=== PATIENT | female | born 1945 | race Caucasian/White ===

== ENCOUNTER 2023-08-08 13:14 | Outpatient (OUT) | payer MEDICARE, SELFPAY ==
--- NOTE | 2023-08-08 | XR_ITS ---
The [place] [id number] Patient Name: EVANGELINA MALAVE MRN: [id number] date: 1945 Sex: F Assigned Patient Location: [facility] Current Patient Location: [facility] Accession/Order Number: [id number] Exam Date: 08/08/2023 13:35 Report Date: 08/08/2023 16:14 At the request of: MANJEET PLAZA Procedure: XR foot JIA min 3V PROCEDURE: XR foot JIA min 3V DATE: 08/08/2023 12:35 PM CDT COMPARISONS: None CLINICAL INDICATION: BILAT FOOT PAIN FINDINGS: There is diffuse bone demineralization. There is bilateral pes planus. There is postop changes of the left distal fibula. There is moderate to severe bilateral hallux valgus deformity. There is mild to moderate lateral subluxation of the first proximal phalanges with respect to the distal first metatarsals bilaterally. This is likely associated with the hallux valgus deformity. There is scattered midfoot degenerative changes There is no evidence of fracture of the left foot There is oblique lucency of the proximal and lateral aspect of the fifth metatarsal. This appears to represent fracture. It may be an acute or subacute fracture. Correlation with physical exam and clinical history may be helpful in determining the age of this fracture. XR/XR foot JIA min 3V IMPRESSION: 1. Prominent bone demineralization 2. Prominent bilateral hallux valgus deformity 3. Bilateral pes planus deformity 4. Scattered degenerative changes 5. Fracture of the proximal lateral aspect of the fifth metatarsal, age undetermined. It is assumed to be an acute fracture. Electronically authenticated by: JOSE LOTT Date: 08/08/2023 16:14
== END 2023-08-08 13:15 | disposition home or self-care (01) ==
LOC: RAD 13:19
PROVIDERS: PCP Family Medicine; Visit Provider Physician Assistant
DX: M79.673 Pain in unspecified foot (principal); M20.12 Hallux valgus (acquired), left foot; M20.11 Hallux valgus (acquired), right foot; M21.42 Flat foot [pes planus] (acquired), left foot; M21.41 Flat foot [pes planus] (acquired), right foot; S92.353A Displaced fracture of fifth metatarsal bone, unspecified foot, initial encounter for closed fracture
CPT/HCPCS: 73630

== ENCOUNTER 2023-08-29 11:38 | Outpatient (OUT) | payer MEDICARE, SELFPAY ==
--- NOTE | 2023-08-29 12:09 | XR_ITS ---
The [address] [address] Patient Name: EVANGELINA MALAVE MRN: [id number] date: 1945 Sex: F Assigned Patient Location: [facility] Current Patient Location: Accession/Order Number: [id number] Exam Date: 08/29/2023 12:00 Report Date: 08/30/2023 08:09 At the request of: NON-STAFF PHYSICIAN Procedure: XR lumbar spine min 4V EXAMINATION: XR lumbar spine min 4V HISTORY: Acute Bilateral Low Back Pain With Sciatica M54.40 COMPARISON: No relevant comparison available. FINDINGS: BONES: Levocurvature of the lumbar spine centered at L2-L3. Moderate degenerative spondylosis and facet osteoarthropathy. 3 mm anterolisthesis of L4 on L5. Anterior wedge compression fracture T11 and T12, chronic changes are favored. DISC SPACES: Multilevel disc space narrowing most significant L4-S1 PARASPINOUS: Negative. No paraspinous abnormality is seen. OTHER: Vascular calcifications XR/XR lumbar spine min 4V IMPRESSION: Moderate diffuse degenerative changes Electronically authenticated by: MICHAEL LAWSON Date: 08/30/2023 08:09
[2023-08-29 12:52] LABS: Anion Gap 14.6; BUN Creatinine Ratio 18.1; Calcium 9.2 mg/dL (8.5-10.1); Carbon Dioxide 22.8 mmol/L (21.0-32.0); Chloride 105 mmol/L (98-107); Estimated GFR (African America 36 (>=60); Estimated GFR (Non-African Ame 30 (>=60); Glucose 122 mg/dL (74-106); Potassium 4.4 mmol/L (3.5-5.1); Sodium 138 mmol/L (136-145)
== END 2023-08-29 11:39 | disposition home or self-care (01) ==
LOC: RAD 11:40
PROVIDERS: PCP Family Medicine
DX: M54.40 Lumbago with sciatica, unspecified side (principal); N18.4 Chronic kidney disease, stage 4 (severe); M47.816 Spondylosis without myelopathy or radiculopathy, lumbar region
CPT/HCPCS: 36415; 72110; 80048

== ENCOUNTER 2024-02-24 14:39 | Outpatient (OUT) | payer MEDICARE, SELFPAY ==
--- OUTSIDE RECORDS SUMMARY | 2024-02-24 14:58 | XMS_ITS | CCD ---
Author Organization [facility] Care Team Providers Care Business Excellence Leader Name Role Phone Remi Ward Admitting Unavailable Remi Ward Attending Unavailable Devante Montesinos Primary Care Unavailable Devante Montesinos Unavailable Unavailable Unavailable LATOSHA VARGAS Attending Unavailable LATOSHA VARGAS Consulting Unavailable LATOSHA VARGAS Admitting Unavailable DR DEVANTE MONTESINOS Primary Care Unavailable Isaías Lew Unavailable POOJA DENISE Attending Unavailable DEVANTE MONTESINOS Attending Unavailable ABBY REIS Attending Unavailable ABBY REIS Attending Unavailable DEVANTE MONTESINOS Attending Unavailable Allergies Allergy Classification Reported Allergen(s) Allergy Type Date of Onset Reaction(s) Facility (1 source) Hmg-Coa Reductase Inhibitors (Statins); Translations: [Statins] Allergy to drug (finding) Other [facility] y 250 DO Work Phone: Medications Current Medications Medication Drug Class(es) Dates Sig (Normalized) Sig (Original) allopurinol 100 mg oral tablet (1 source) Xanthine Oxidase Inhibitor take 1 tablet by mouth every twenty-four hours Allopurinol 100 MG 1 Tablet Orally Daily for 90 day(s) Active apixaban 2.5 mg oral tablet (2 sources) Factor Xa Inhibitor Eliquis 2.5 MG Orally twice a day Active Completed/Discontinued Medications Medication Drug Class(es) Dates Sig (Normalized) Sig (Original) amLODIPine 10 mg oral tablet (2 sources) Dihydropyridine Calcium Channel Josiah Start: 10-02-2021 take 1 tablet by mouth once daily amLODIPine Besylate 10 MG Oral Tablet Take 1 tablet daily Quantity: 90 Refills: 3 Ordered: 30-Dec-2021 DO Start : 02-Oct-2021 Active carvedilol 12.5 mg oral tablet (2 sources) alpha-Adrenergic Josiah, beta-Adrenergic Josiah Start: 09-25-2021 take 0.5 tablet by mouth twice daily Carvedilol 12.5 MG Oral Tablet take 1/2 tablet by mouth twice daily Quantity: 180 Refills: 3 Ordered: 26-Dec-2021 DO Start : 25-Sep-2021 Active cloNIDine hydrochloride 0.1 mg oral tablet (2 sources) Central alpha-2 Adrenergic Agonist Start: 03-21-2021 take 1 tablet by mouth three times daily cloNIDine HCl - 0.1 MG Oral Tablet TAKE 1 TABLET 3 TIMES DAILY. Quantity: 0 Refills: 0 Ordered: 26-Dec-2021 DO Start : 21-Mar-2021 Active furosemide 40 mg oral tablet (2 sources) Loop Diuretic Start: 08-14-2020 take 1 tablet by mouth twice daily Furosemide 40 MG Oral Tablet TAKE 1 TABLET TWICE DAILY. Quantity: 180 Refills: 3 Ordered: 13-Apr-2021 DO Start : 14-Aug-2020 Active take 2 tablets by mo uth in the morning, then take 1 tablet by mouth twice daily in the evening Lasix 40 mg 2 Tablets In AM and 1 tab in Pm Orally bid Active Problems Active Problems Problem Classification Problem Date Documented Date Episodic/Chronic Acute cerebrovascular disease (1 source) Cerebrovascular accident; Translations: [Cerebral artery occlusion, unspecified with cerebral infarction] Chronic Cardiac dysrhythmias (1 source) Paroxysmal atrial fibrillation; Translations: [Atrial fibrillation] Chronic Chronic kidney disease (7 sources) Chronic kidney disease stage 3; Translations: [Chronic kidney disease, Stage III (moderate)] Chronic Chronic kidney disease (1 source) Chronic kidney disease; Translations: [Chronic kidney disease, stage III (moderate)] Deficiency and other anemia (1 source) Anemia of renal disease; Translations: [Anemia in chronic kidney disease] Chronic Deficiency and other anemia (1 source) Anemia in chronic kidney disease Chronic Diabetes mellitus with complications (1 source) Type 2 diabetes mellitus; Translations: [Type 2 diabetes mellitus with diabetic chronic kidney disease] Chronic Essential hypertension (1 source) Benign essential hypertension; Translations: [Benign essential hypertension] Chronic Hypertension with complications and secondary hypertension (2 sources) Hypertensive renal disease; Translations: [Hypertensive chronic kidney disease with stage 1 through stage 4 chronic kidney disease, or unspecified chronic kidney disease] Chronic Other diseases of kidney and ureters (1 source) Secondary hyperparathyroidism; Translations: [Secondary hyperparathyroidism of renal origin] Chronic Other diseases of kidney and ureters (1 source) Secondary hyperparathyroidism of renal origin Chronic Other nutritional; endocrine; and metabolic disorders (1 source) Severe obesity; Translations: [Morbid obesity] Chronic Other nutritional; endocrine; and metabolic disorders (1 source) Hyperuricemia without signs of inflammatory arthritis and tophaceous disease Episodic Other skin disorders (3 sources) Rash and other nonspecific skin eruption; Translations: [RASH OTH NONSPECIFIC SKIN ERUPTION] Onset: 2 Episodic Viral infection (1 source) Zoster without complications; Translations: [ZOSTER WITHOUT COMPLICATIONS] Onset: 2 Episodic Past or Other Problems Problem Classification Problem Date Documented Da te Episodic/Chronic Unclassified (1 source) Never smoked tobacco; Translations: [Never a smoker] Results Test Name Value Interpretation Reference Range Facil ity Office Visit (Cardiology)on 02-05-2022 Follow-up visit Patient Instructions Please bring all medicines, vitamins, and herbal supplements with you when you come to the office. Prescriptions will not be filled unless you are compliant with your follow up appointments or have a follow up appointment scheduled as per instruction of your physician. Refills should be requested at the time of your visit. Patient provided Falls Prevention education sheet. PATIENT MAY PROCEDE WITH 1 1,2 SURGERY Follow-up as needed only 2 1 Amended By: Brii Hernandez; Feb 05 2022 3:09 PM EST 2 Amended By: Brii Hernandez; Feb 05 2022 3:10 PM ESTChief Complaint MARYLIN MALAVE is being seen for pre-operative clearance and Dr. Larkin - carpal tunnel on 02/21/2022. History of Present Illness Mrs. Malave is a 76-year-old female who is seen today for preoperative clearance for her to undergo carpal tunnel surgery. She does not have any known history of coronary disease. I have seen her in the past but not since October 2019. She has a history of occasional episodes of atrial fibrillation. She indicates she has not had any recent events. EKG today shows sinus rhythm. She does have chronic hypertension. She has no active cardiac complaints at present time. She does not have any known history of coronary disease and has no anginal symptoms with activity and she is able to ambulate to what would appear to be more than a 4 met exertional level. Physical exam: Neck: No carotid bruits are heard Lungs: Clear Heart: Regular rate and rhythm without murmurs or extra sounds Extremities: Trace edema Recommendation is continued treatment for her hypertension. She is on low-dose Eliquis. She would prefer to continue to follow-up with primary care. She will therefore return here on a as needed basis. A letter will be sent to Dr. Larkin for preoperative clearance for her carpal tunnel surgery. Surgical History Problems History of Ankle surgery Denied: History of Complete colonoscopy Current Meds Medication NameInstruction amLODIPine Besylate 10 MG Oral TabletTake 1 tablet daily Carvedilol 12.5 MG Oral Tablettake 1/2 tablet by mouth twice daily cloNIDine HCl - 0.1 MG Oral TabletTAKE 1 TABLET 3 TIMES DAILY. Eliquis 2.5 MG Oral TabletTAKE 1 TABLET BY MOUTH TWO TIMES A DAY Furosemide 40 MG Oral TabletTAKE 1 TABLET TWICE DAILY. Allergies Medication Statins Adverse Reaction; renal insufficiency; Recorded By: Amanda Maharaj; 02/05/2022 2:37:07 PM Social History Problems Daily caffeine consumption coffee 2 cups weekly Never a smoker No alcohol use No illicit drug use Review of Systems Constitutional: not feeling tired. Cardiovascular: no intermittent leg claudication and as noted in HPI. Respiratory: no cough and no shortness of breath. Gastrointestinal: no change in bowel habits and no blood in stools. Integumentary: no skin rashes. Neurological: no seizures and no frequent falls. All other systems have been reviewed and are negative for complaint. Vitals Vital Signs Recorded: 05Feb2022 02:39PM Heart Rate69, Apical Hdnwofmb546, LUE, Sitting Ctlcdcvcv82, LUE, Sitting Height5 ft 6 in Mlpvoz229 lb BMI Rwftrbycqt30.99 kg/m2 BSA Calculated2.09 Tobacco Useb) No PHQ-2 #1. Over the last 2 weeks have you felt down, depressed or hopeless? (If yes, answer PHQ-9 below)No PHQ-2 #2. Over the last 2 weeks have you felt little interest or pleasure in doing things? (If yes, answer PHQ-9 below)No Fall Screeningb) One or more falls in the last year EKG done in office today. Signatures Electronically signed by : Jhonatan Hoffman DO; Feb 05 2022 3:11PM EST (Author) Normal [employer] Tobacco Screening.on 022 Adult depression screening assessment No [facility] 250 DO Work Phone: Fall risk assessment b) One or more falls in the last year [facility] [employer] [place] Bello DO Work Phone: Tobacco use status CP b) No [facility] Bello DO Work Phone: Basic Metabolic Panelon 01-27 Calcium mass conc 9.6 mg/dL Normal 8.2-10.2 [facility] Comment on above: Performed By: #### C BC, PP, BMP, MG, PRL #### [facility] [address] Chloride molar conc 111 mmol/L Normal 95-114 [facility] Comment on above: Performed By: #### C BC, PP, BMP, MG, PRL #### [facility] [address] CO2 molar conc 21.0 mmol/L Low 22.0-30.0 [facility] Comment on above: Performed By: #### C BC, PP, BMP, MG, PRL #### [facility] [address] Creatinine mass conc 2.02 mg/dL High 0.44-1.03 [facility] Comment on above: Performed By: #### C BC, PP, BMP, MG, PRL #### [facility] [address] [place] [id number] [facility] Creatinine mass conc 30.2859554946 mg/dL [facility] Comment on above: Performed By: #### C BC, PP, BMP, MG, PRL #### [facility] [address] [place] [id number] [place] Estimated GFR ( Irina 29 [facility] Comment on above: Result Comment: GFR estimated reference range: According to KDOQI guidelines, <60 ml/min/1.73m2 is sufficient to diagnose a patient with chronic kidney disease. Performed By: #### C BC, PP, BMP, MG, PRL #### [facility] [address] [place] [address] [place] Estimated GFR (Non- Am 24 [facility] Comment on above: Performed By: #### C BC, PP, BMP, MG, PRL #### [facility] [address] [place] [address] [place] Glucose mass conc 151 mg/dL High 70-100 [facility] Comment on above: Result Comment: Rosamond Glucose Reference Range is dependent on time and content of last meal. Glucose of more than 200 mg/dL in a nonstressed, ambulatory subject supports the diagnosis of Diabetes Mellitus. ADA recommended reference range Performed By: #### C BC, PP, BMP, MG, PRL #### [facility] [address] Potassium molar conc 4.3 mmol/L Normal 3.5-5.1 [facility] Comment on above: Performed By: #### C BC, PP, BMP, MG, PRL #### [facility] [address] Sodium molar conc 143 mmol/L Normal 136-146 [facility] Comment on above: Performed By: #### C BC, PP, BMP, MG, PRL #### [facility] [address] Urea nitrogen mass conc 36 mg/dL High 9-23 [facility] Comment on above: Performed By: #### C BC, PP, BMP, MG, PRL #### [facility] [address] head/brain wo conon 02-15 CT head/brain wo con [place] [address] CT Scan Report Signed Patient: Ivon Malave MR#: [id number] 30 : 1945 Acct:[id number] Age/Sex: 73 / F ADM Date: 02/15/19 Loc: ER Room: Type: [facility] ER Attending Dr: Ordering Provider: Remi Ward DO Date of Service: 02/15/19 CT/CT head/brain wo con: Syncope Copies to: Remi Ward DO CT head/brain wo con 02/15/2019 12:24 PM SIGNS AND SYMPTOMS: Syncope TECHNIQUE:Multi-detect or CT axial slices of the brain were obtained without IV contrast. CT was performed with one or more of the following dose reduction techniques: Automated exposure control, adjustment of the mA and/or kV according to patient size, or use of iterative reconstruction technique. COMPARISON: 01/28/2017 FINDINGS: There is no shift of the midline structures, acute intracranial bleeding, mass effects, or evidence of acute ischemia. There is gliosis and encephalomalacia in the left frontal lobe containing into the subcortical white matter anteriorly. There is mild diffuse chronic microvascular ischemic change. There is mild diffuse cortical atrophy. The ventricular system is normal in size. The brainstem and the cerebellum are unremarkable. The visualized intraorbital contents, the visualized paranasal sinuses, and the infratemporal soft tissues show no acute abnormality. The osseous structures in the skull base and the calvarium show no abnormality. CT/CT head/brain wo con IMPRESSION: No acute intracranial pathology. Gliosis and encephalomalacia within the left frontal lobe consistent with a remote infarct. This is unchanged. Impression dictated by: Joshua Nguyen M.D.02/15/2019 1:55 PM Dictation Location: [facility] Transcribed By: [facility] 02/15/19 1355 Dictated By: Joshua Nguyen II, MD 02/15/19 1351 Signed By: 02/15/19 135 [facility] Coagulation Profileon 2018 aPTT Coag time (Bld) 36.1 s High 23.0-35.0 [facility] Comment on above: Result Comment: PERF ORMED BY: [place] [address] PATHOLOGIST IN PROCESSING INSTRUCTOR GAVINO BENITES M.D. Performed By: #### C BC, PP, BMP, MG, PRL #### [address] INR Coag RelTime (PPP) 1.3 {INR} [facility] Comment on above: Result Comment: INR Therapeutic Range A) Pre- and Peroperative OAT started two weeks before surgery. NOT HIP SURGERY: 1.5 - 2.5 HIP SURGERY: 2 - 3 B) Primary and secondary prevention of venous THROMBOSIS: 2 - 3 C) Active venous thrombosis, pulmonary embolism and prevention of recurrent venous thrombosis: 2 - 3 D) Prevention of arterial thromboembolism including patients with mechanical heart valves: 3 - 4.5 Performed By: #### C BC, PP, BMP, MG, PRL #### [address] Prothrombin time (PT) Coag time (PPP) 15.2 s High 9.0-12.9 [facility] Comment on above: Performed By: #### C BC, PP, BMP, MG, PRL #### [address] Complete Blood Count Auto Di ffon 02-15-2019 Basophils #/vol (Bld) 0.1 10*3/uL Normal 0.0-0.2 [facility] Comment on above: Result Comment: PERF ORMED BY: [place] [address] PATHOLOGIST IN PROCESSING INSTRUCTOR GAVINO BENITES M.D. Performed By: #### C BC, PP, BMP, MG, PRL #### [address] Basophils/100 WBC (Bld) 1.1 % Normal . [facility] Comment on above: Performed By: #### C BC, PP, BMP, MG, PRL #### [address] Eosinophils #/vol (Bld) 0.1 10*3/uL Normal 0.0-0.45 [facility] Comment on above: Performed By: #### C BC, PP, BMP, MG, PRL #### [address] Eosinophils/100 WBC (Bld) 1.2 % Normal . [facility] Comment on above: Performed By: #### C BC, PP, BMP, MG, PRL #### [address] Erythrocyte distribution width Ratio (RBC) 13.9 % Normal 11.9-15.3 [facility] Comment on above: Performed By: #### C BC, PP, BMP, MG, PRL #### [address] Hematocrit Volume Fraction (Bld) 36.1 % Normal 34.0-46.4 [facility] Comment on above: Performed By: #### C BC, PP, BMP, MG, PRL #### [address] Hemoglobin mass conc (Bld) 12.4 g/dL Normal 11.8-15.4 [facility] Comment on above: Performed By: #### C BC, PP, BMP, MG, PRL #### [address] Lymphocytes #/vol (Bld) 0.7 10*3/uL Low 1.00-4.8 [facility] Comment on above: Performed By: #### C BC, PP, BMP, MG, PRL #### [address] Lymphocytes/100 WBC (Bld) 13.4 % Normal . [facility] Comment on above: Performed By: #### C BC, PP, BMP, MG, PRL #### [address] MCH Entitic mass (RBC) 29.6 pg Normal 24.7-34.3 [facility] Comment on above: Performed By: #### C BC, PP, BMP, MG, PRL #### [address] MCH Entitic mass (RBC) 34.2 g/dL Normal 32.0-35.0 [facility] Comment on above: Performed By: #### C BC, PP, BMP, MG, PRL #### [address] MCV Entitic volume (RBC) 86.5 fL Normal 80-100 [facility] Comment on above: Performed By: #### C BC, PP, BMP, MG, PRL #### [address] Monocytes #/vol (Bld) 0.2 10*3/uL Normal 0.0-0.8 [facility] Comment on above: Performed By: #### C BC, PP, BMP, MG, PRL #### [facility] [address] [place] [address] Monocytes/100 WBC (Bld) 4.1 % Normal . [facility] Comment on above: Performed By: #### C BC, PP, BMP, MG, PRL #### [facility] [address] [place] [address] Neutrophils #/vol (Bld) 4.0 10*3/uL Normal 1.8-7.7 [facility] Comment on above: Performed By: #### C BC, PP, BMP, MG, PRL #### [address] Neutrophils/100 WBC (Bld) 80.2 % Normal . [facility] Comment on above: Performed By: #### C BC, PP, BMP, MG, PRL #### [address] Nucleated RBC/100 WBC Ratio (Bld) 0.0 % Normal 0-0.5 [facility] Comment on above: Performed By: #### C BC, PP, BMP, MG, PRL #### [address] Platelet mean volume Entitic volume (Bld) 7.3 fL Normal 6.3-10.7 [facility] Comment on above: Performed By: #### C BC, PP, BMP, MG, PRL #### [facility] [address] [place] [address] Platelets #/vol (Bld) 154 10*3/uL Normal 150-450 [facility] Comment on above: Performed By: #### C BC, PP, BMP, MG, PRL #### [facility] [address] [place] [address] RBC #/vol (Bld) 4.18 10*6/uL Normal 3.60-5.00 [facility] Comment on above: Performed By: #### C BC, PP, BMP, MG, PRL #### [facility] [address] WBC #/vol (Bld) 5.1 10*3/uL Normal 4.5-11.0 [facility] Comment on above: Performed By: #### C BC, PP, BMP, MG, PRL #### [facility] [address] Creatine Kinaseon 02-15-2019 CK enzyme act/vol 49 U/L Normal 22-269 [facility] Comment on above: Performed By: #### C K, CKMB, TROP #### [facility] [address] Creatinine Kinase MBon 02-15 CK.MB mass conc 2.6 ng/mL High 0.00-2.50 [facility] Comment on above: Performed By: #### C K, CKMB, TROP #### [facility] [address] CK.MB mass conc 1.3 ng/mL Normal 0.6-6.3 [facility] Comment on above: Performed By: #### C K, CKMB, TROP #### [address] ECG 12 lead ECGon 02-15-2019 ECG 12 lead ECG [facility] [place] [address] [place] [address] Electrocardiograph Report Signed Patient: Ivon Malave MR#: [id number] [birth year] : 1945 Acct:[id number] Age/Sex: 73 / F ADM Date: 02/15/19 Loc: ER Room: Type: [facility] ER Attending Dr: Ordering Provider: Remi Ward DO Date of Service: 02/15/19 ECG/ECG 12 lead ECG: Syncope Copies to: Test Reason : Blood Pressure : / mmHG Vent. Rate : 057 BPM Atrial Rate : 057 BPM P-R Int : 218 ms QRS Dur : 098 ms QT Int : 422 ms P-R-T Axes : 046 042 -10 degrees QTc Int : 410 ms Sinus bradycardia with sinus arrhythmia with 1st degree AV block Nonspecific ST and T wave abnormality Abnormal ECG When compared with ECG of 28-JAN-2017 11:45, T wave inversion now evident in Inferior leads Confirmed by REMI WARD JR, DO ([id number]) on 02/15/2019 5:54:13 PM Referred By: Electronically Signed By:REMI WARD JR, DO Transcribed By: MUS Dictated By: Remi Ward DO 02/15/19 1155 Signed By: 02/15/19 1754 Normal [facility] Magnesiumon 02-15-2019 Magnesium mass conc 2.2 mg/dL Normal 1.6-2.6 [facility] Comment on above: Performed By: #### C BC, PP, BMP, MG, PRL #### [address] Prolactinon 02-15-2019 Protein mass conc 13.65 ng/mL Normal 2.74-19.64 [facility] Comment on above: Result Comment: PERF ORMED BY: [place] [address] PATHOLOGIST IN PROCESSING INSTRUCTOR GAVINO BENITES M.D. Performed By: #### C BC, PP, BMP, MG, PRL #### [place] [id number] [facility] Troponin I(TnI)on 02-15-2019 Troponin I.cardiac mass conc ng/mL Normal 0-0.02 [facility] Comment on above: Result Comment: SOPHIE ND Cut off value > or equal to 0.03 ng/mL in conjunction with clinical conditions of myocardial infarction. (www.escardio.org/guidelines) PERFORMED BY: [place] [address] PATHOLOGIST IN PROCESSING INSTRUCTOR GAVINO BENITES M.D. Performed By: #### C K, CKMB, TROP #### [place] [id number] [facility] Vital Signs Date Time Vital Sign Value Performing Clinician Facility 07-31-2022 17:00-0400 Body height 165.1 cm Isaías Vipin Other [facility] Other 07-31-2022 17:00-0400 Body mass index (BMI) [Ratio] 35.14 kg/m2 Isaías Vipin Other [facility] Other 07-31-2022 17:00-0400 Body temperature 97 [degF] Isaías Vipin Other [facility] Other 07-31-2022 17:00-0400 Body weight 95.8 kg Isaías Vipin Other [facility] Other 07-31-2022 17:00-0400 Diastolic blood pressure 83 mm[Hg] Isaías Vipin Other [facility] Other 07-31-2022 17:00-0400 Respiratory rate 18 /min Isaías Vipin Other [facility] Other 07-31-2022 17:00-0400 SaO2% (BldA) [Mass fraction] 94 % Isaías Vipin Other [facility] Other 07-31-2022 17:00-0400 Systolic blood pressure 175 mm[Hg] Isaías Vipin Other [facility] Other 02-05-2022 14:39-0400 Body height 167.64 cm SiTunea Work Phone: [employer] 250 DO Work Phone: 02-05-2022 14:39-0400 Body mass index (BMI) [Ratio] 35.99 kg/m2 Leho Jaguar Work Phone: [employer] 250 DO Work Phone: 02-05-2022 14:39-0400 Body surface area Derived from formula 2.09 m2 Rugen M [place] Work Phone: [facility] 250 DO Work Phone: 02-05-2022 14:39-0400 Body weight 101.15 kg Rugen M [place] Work Phone: [facility] 250 DO Work Phone: 02-05-2022 14:39-0400 Diastolic blood pressure 98 mm[Hg] Rugen M [place] Work Phone: [facility] 250 DO Work Phone: 02-05-2022 14:39-0400 Heart rate 69 /min Rugen M [place] Work Phone: [facility] 250 DO Work Phone: 02-05-2022 14:39-0400 Systolic blood pressure 184 mm[Hg] Rugen M [place] Work Phone: [facility] 250 DO Work Phone: Encounters Encounter Date Encounter Type Care Provider Facility Start: 01-16-2024 End: 01-16-2024 ambulatory RUGEN M JAGUAR Not Available Start: 12-17-2023 End: 12-17-2023 ambulatory POOJA DENISE Not Available Start: 10-15-2023 End: 10-15-2023 ambulatory RUGEN M JAGUAR Not Available Start: 09-25-2023 End: 09-25-2023 ambulatory ABBY B APLING Not Available Start: 09-09-2023 End: 09-09-2023 ambulatory ABBY B APLING Not Available Start: 07-31-2022 End: 07-31-2022 ambulatory Isaías Lew Other [facility] [employer] Other Start: 07-31-2022 Office outpatient vi sit 25 minutes Isaías Lew [facility] Start: 05-05-2022 End: 05-05-2022 ambulatory LATOSHA VARGAS Facility:[facility] Start: 02-05-2022 Office outpatient vi sit 25 minutes Rugen M [place] Work Phone: [facility] 250 DO Work Phone: Start: 02-15-2019 End: 02-15-2019 Emergency department patient visit Remi Ward Facility:[facility] Patient encounter status Rugen M [place] Work Phone: [facility] [facility] 250 DO Work Phone: Procedures Date Procedure Procedure Detail Performing Clinician Operative procedure on ankle Rugen M [place] Work Phone: NEGATED: Highlighted row has not occurred! Total colonoscopy Rugen M [place] Work Phone: Immunizations Immunization Date Immunization Notes Care Provider Fa cili 08-30-2021 Moderna COVID-19 Vac cine 100 MCG/0.5ML Intramuscular Suspension Rugen M [place] Work Phone: [facility] 250 DO Work Phone: 08-07-2021 influenza, high dose seasonal, preservative-free Rugen M [place] Work Phone: [facility] 250 DO Work Phone: 01-03-2021 Moderna COVID-19 Vac cine 100 MCG/0.5ML Intramuscular Suspension Rugen M [place] Work Phone: [facility] 250 DO Work Phone: 12-05-2020 Moderna COVID-19 Vac cine 100 MCG/0.5ML Intramuscular Suspension Rug[place] M [place] Work Phone: [facility] DO Work Phone: 07-26-2020 influenza, high dose seasonal, preservative-free Rugen M [place] Work Phone: [facility] 250 DO Work Phone: 08-10-2019 influenza, high dose seasonal, preservative-free Rugen M [place] Work Phone: [facility] 250 DO Work Phone: 07-29-2018 influenza, high dose seasonal, preservative-free Rugen M [place] Work Phone: [facility] 250 DO Work Phone: 07-22-2017 influenza, high dose seasonal, preservative-free Rugen M [place] Work Phone: [facility] 250 DO Work Phone: 05-02-2017 pneumococcal polysaccharide vaccine, 23 valent Rugen M [place] Work Phone: [facility] 250 DO Work Phone: 05-02-2017 zoster vaccine, live Rugen M [place] Work Phone: [place] [id number] DO Work Phone: 10-16-2016 pneumococcal polysaccharide vaccine, 23 valent Rugen M [place] Work Phone: [facility] 250 DO Work Phone: 08-23-2016 influenza, seasonal, injectable Rugen M [place] Work Phone: [facility] 250 DO Work Phone: 08-07-2016 influenza, injectabl e, quadrivalent, contains preservative Rugen M [place] Work Phone: [facility] 250 DO Work Phone: Payers Date Payer Category Payer Medicare [id number] 2019 Private Health Insurance [id number] 2019 Self-pay 1958 Medicare [id number] 1945 Unknown [id number] 2.16.84 [id number] 1945 Unknown [id number] 2.16.84 [id number] 1945 Unknown [id number] 2.16.84 [id number] 1945 Unknown [id number] 1946 Unknown [id number] 1945 Unknown [id number] Unknown [id number] 2.16.84 [id number] Unknown [employer] Social History Date Type Detail Facility No illicit drug use No illicit drug use [facility] 250 DO Work Phone: Comment on above: coffee 2 cups weekly ; Sex Assigned At Sex Assigned At [facility] [employer] Other Evaluation note 07-31-2022 Note Date & Type Note Facility 07-31-2022 Evaluation note Encounter Date Diagnosis Assessment Notes Jul, Hypertensive chronic kidney disease with stage 1 through stage 4 chronic kidney disease, or unspecified chronic kidney disease (ICD-10 - I12.9) BP is uncontrolled and she appears to be hypervolemic. I have advised her to comply with Lasix 40 mg BID. Comply with the fluid restriction 50 ounces a day. Jul, CKD (chronic kidney disease) stage 4, GFR 15-29 ml/min (ICD-10 - N18.4) She has CKD due to DM and HTN. Her b/l Creatinine is 1.8-2 mg/dl. I have discussed with her the importance of good DM and HTN control to slow down the progression of disease Jul, Anemia in chronic kidney disease (ICD-10 - D63.1) Hb is within the goal with adequate iron stores. No need for CORETTA Jul, Secondary hyperparathyroidism (ICD-10 - N25.81) MBD parametrectomy with calcium, phosphorus vitamin D and PTH are within the goal. No need for calcitriol. 04 Oct, 2022 Hyperuricemia (ICD-10 - E79.0) She has hyperuricemia due to the CKD. Denies any recent gout flare. We will continue to monitor without any medications. [employer] Other History general Narrative - Reported 04-27-2022 Note Date & Type Note Facility 04-27-2022 History general N arrative - Reported Type Medical History CKD Medical History DM Medical History HTN Medical History Hyperlipidemia Medical History h/o CVA Medical History SHINGLES 04/2022 Medical History COVID 10/2021 Surgical History ankle surgery Surgical History Tunneled HD cath placement Surgical History LEFT CTR 01/2022 Hospitalization History childbirth Hospitalization History broken right ankle [employer] Other Summary Purpose Family History No Family History Records FoundUnknown Family Member Name Dates Details Family history of malignant neoplasm of breast: Mother(V16.3, Z80.3) Status:Active Advance Directives No Advanced Directives Records FoundNo Advanced Directives Records FoundNo Advanced Directives Records FoundNo Advanced Directives Records Found Additional Source Comments INFORMATION SOURCE (unrecogn ized section and content) DATE CREATED AUTHOR 02/15/2019 [facility] DATE CREATED AUTHOR AUTHOR'S ORGANIZ ATION 02/06/2022 [employer] DATE CREATED AUTHOR AUTHOR'S ORGANIZ ATION [facility]/07/2022 [facility] DATE CREATED AUTHOR AUTHOR'S ORGANIZ ATION 01/17/2024 [facility] EPIC REASON FOR VISIT (unrecogniz ed section and content) CKD FOR RECORDS PERTAINING TO PATIENTS WHO ARE OR HAVE BEEN ENROLLED IN A CHEMICAL DEPENDENCY/SUBSTANCEABUSE PROGRAM, SOME INFORMATION MAY BE OMITTED. This clinical summary was aggregated from multiple sources. Caution should be exercised in using it in the provision of clinical care. This summary normalizes information from multiple sources, and as a consequence, information in this document may materially change the coding, format and clinical context of patient data. In addition, data may be omitted in some cases. CLINICAL DECISIONS SHOULD BE BASED ON THE PRIMARY CLINICAL RECORDS. [email or web address] provides no warranty or guarantee of the accuracy or completeness of information in this document.
== END 2024-02-24 14:40 | disposition home or self-care (01) ==
LOC: LAB 14:40
PROVIDERS: PCP Family Medicine; Visit Provider Nurse Practitioner Family
DX: M10.9 Gout, unspecified (principal)
CPT/HCPCS: 36415; 84550